=== PATIENT | female | born 1945 | race Caucasian/White ===

== ENCOUNTER → 2019-04-02 | Outpatient (CLI) | payer MEDICARE, OTHER ==
--- NOTE | 2019-04-02 16:10 | RADIOLOGY REPORT (SQ) ---
EXAM DESCRIPTION: U/S RETROPERITON (RENAL/AORTA) COMPLETED DATE/TIME: 04/02/2019 3:25 pm REASON FOR STUDY: R80.9 PROTEINURIA, UNSPECIFIED Z87.440 PERSONAL HISTORY OF URINARY (TRACT) INFECT IONS R80.9 PROTEINURIA, UNSPECIFIED COMPARISON: None. TECHNIQUE: Dynamic and static grayscale images acquired of the kidneys and bladder and recorded on P ACS. Additional selected color Doppler and spectral images recorded. LIMITATIONS: None. FINDINGS: RIGHT KIDNEY: Normal size. Normal echogenicity. No solid or suspicious masses. No hydronep hrosis. No calcifications. LEFT KIDNEY: Normal size. Normal echogenicity. No solid or suspicious masses. No hydronephrosis. No calcifications. BLADDER: No masses. OTHER FINDINGS: No other significant finding. IMPRESSION: NORMAL RENAL AND BLADDER ULTRASOUND. TECHNICAL DOCUMENTATION: JOB ID: [id number] [email or web address]- All Rights Reserved Reading location - IP/workstation name: [email or web address]
== END ==
LOC: RAD 14:39
PROVIDERS: ATTEND Internal Medicine Nephrology
DX: Z87.440 Personal history of urinary (tract) infections (principal); R80.9 Proteinuria, unspecified; E88.09 Other disorders of plasma-protein metabolism, not elsewhere classified; R60.9 Edema, unspecified
CPT/HCPCS: 76770

== ENCOUNTER → 2019-04-30 | Outpatient (CLI) | payer MEDICARE, OTHER ==
[2019-04-30 17:35] LABS: ABSOLUTE EOSINOPHILS # (AUTO) 0.1 10^3/uL (0.0-0.6); ABSOLUTE LYMPHOCYTES (AUTO) 1.4 10^3/uL (0.5-4.7); ABSOLUTE MONOCYTES (AUTO) 0.6 10^3/uL (0.1-1.4); ABSOLUTE NEUT (AUTO) 1.7 10^3/uL (1.7-8.2); BASOPHILS % (AUTO) 1.1 % (0-2); EOSINOPHILS % (AUTO) 2.4 % (0-6); HEMATOCRIT 37.7 % (36.0-47.0); HEMOGLOBIN 13.3 g/dL (12.0-15.5); LYMPHOCYTES % (AUTO) 36.3 % (13-45); MEAN CORPUSCULAR HEMOGLOBIN 38.1 pg (27.0-33.4); MEAN CORPUSCULAR HGB CONC 35.2 g/dL (32.0-36.0); MEAN CORPUSCULAR VOLUME 108 fl (80-97); RED BLOOD COUNT 3.48 10^6/uL (3.72-5.28); RED CELL DISTRIBUTION WIDTH 13.9 % (11.5-14.0); SEGMENTED NEUTROPHILS % (AUTO) 45.2 % (42-78); TOTAL CELLS COUNTED % (AUTO) 100 %; WHITE BLOOD COUNT 3.7 10^3/uL (4.0-10.5)
[2019-04-30 17:47] LABS: APPEARANCE,URINE SLIGHTLY-CLOUDY; BILIRUBIN,URINE NEGATIVE (NEGATIVE); COLOR,URINE YELLOW; GLUCOSE, URINE NEGATIVE (NEGATIVE); KETONES,URINE NEGATIVE (NEGATIVE); LEUKOCYTE ESTERASE,URINE NEGATIVE (NEGATIVE); NITRITE,URINE NEGATIVE (NEGATIVE); PROTEIN,URINE NEGATIVE (NEGATIVE); URINE SPECIFIC GRAVITY 1.004; UROBILINOGEN,URINE NEGATIVE mg/dL (<2.0)
[2019-04-30 17:48] LABS: ANION GAP 10 (5-19); BLOOD UREA NITROGEN 2 mg/dL (7-20); CALCIUM 8.2 mg/dL (8.4-10.2); CARBON DIOXIDE 25 mmol/L (22-30); CHLORIDE 92 mmol/L (98-107); GLUCOSE 113 mg/dL (75-110); POTASSIUM 4.3 mmol/L (3.6-5.0)
[2019-04-30 17:58] LABS: PLATELET COUNT 73 10^3/uL (150-450)
[2019-04-30 17:59] LABS: URINE PROTEIN 22.5 mg/dL (<12)
[2019-04-30 18:00] LABS: URINE CREATININE 25.1 mg/dL (15-278)
[2019-04-30 18:00] LABS: UR PRO/CREAT RATIO RESULT 0.9 mg/mg (0.0-0.2); URINE CREATININE 34.5 mg/dL (15-278); URINE PROTEIN 29.8 mg/dL (<12)
[2019-04-30 18:13] LABS: ERYTHROCYTE SEDIMENTATION RATE 20 mm/hr (0-30)
[2019-04-30 18:22] LABS: 24 HOUR URINE PROTEIN RESULT 702 mg/day (42-225)
[2019-04-30 18:24] LABS: CREATININE 0.54 mg/dL (0.52-1.25)
[2019-05-02 07:38] LABS: COMPLEMENT C3 92 mg/dL (82-167); COMPLEMENT C4 9 mg/dL (14-44); HEPATITIS C VIRUS AB <0.1 s/co ratio (0.0-0.9); HEPATITS B SURFACE ANTIGEN Negative (Negative)
[2019-05-02 07:45] LABS: HEPATITIS B CORE AB TOT Negative (Negative)
[2019-05-02 11:40] LABS: GLOMERULAR BASMENT MEMBRANE AB 3 units (0-20)
[2019-05-02 16:36] LABS: A/G RATIO 0.7 (0.7-1.7); ALBUMIN 2 2.7 g/dL (2.9-4.4); ALPHA-2-GLOBULIN 2 0.7 g/dL (0.4-1.0); BETA GLOBULINS 0.9 g/dL (0.7-1.3); GLOBULIN TOTAL 3.8 g/dL (2.2-3.9); IMMUNOGLOBULIN A 761 mg/dL (64-422); IMMUNOGLOBULIN G 1966 mg/dL (700-1600); MONOCLONAL SPIKE Not Observed g/dL (Not Observ); PROTEIN TOTAL SERUM 6.5 g/dL (6.0-8.5)
[2019-05-02 17:36] LABS: ANTIMYELOPEROXIDASE (MPO) AB <9.0 U/mL (0.0-9.0); CYTOPLASMIC (C-ANCA) <1:20 titer (Neg:<1:20)
[2019-05-03 07:03] LABS: IMMUNOGLOBULIN M 113 mg/dL (26-217)
[2019-05-03 07:04] LABS: ATYPICAL PANCA <1:20 titer (Neg:<1:20)
== END ==
LOC: OD 16:22
PROVIDERS: ATTEND Internal Medicine Nephrology
DX: R80.9 Proteinuria, unspecified (principal); R60.9 Edema, unspecified; Z87.440 Personal history of urinary (tract) infections
CPT/HCPCS: 36415; 80048; 81001; 82040; 82570; 82575; 82784; 83516; 84156; 84165; 85025; 85652; 86038; 86160; 86256; 86704; 86803; 86804; 87086; 87088; 87340